=== PATIENT | female | born 1980 | race Asian ===

== ENCOUNTER → 2024-10-24 | Day surgery (SDC) | payer OTHER ==
[~2024-10-24] MED LIST: CALCIUM CARBON500 MG PO; FENTANYL CITRATE/PF 100MCG/2 ML INJ ONE; GLYCOPYRROLATE INJ 0.2 MG/ML VIAL ONE; INDERAL10 MG PO; LIDOCAINE HCL 2% LOCAL INJ 5 ML SDV VIAL INJ ONE; METOCLOPRAMIDE HCL 10 MG/2ML VIAL ONE; PROPOFOL IV EMULSION 10 MG/ML 20 ML VIAL ONE; PROPOFOL IV EMULSION 50 ML IV ONE; ZOLOFT50 MG PO
[2024-10-24] MEDS: LACTATED RINGER'S 1,000 ML ONE (09:56)
[2024-10-24 12:15] VITALS: BP 109/70; PULSE 78; RESP 16; TEMP 97.1; O2SAT 98
== END | disposition home or self-care (01) ==
LOC: OR 08:54
PROVIDERS: ATTEND Internal Medicine Gastroenterology
DX: Z09 Encounter for follow-up examination after completed treatment for conditions other than malignant neoplasm (principal); Z86.0100 Personal history of colon polyps, unspecified; K64.8 Other hemorrhoids; Z71.3 Dietary counseling and surveillance; F32.A Depression, unspecified; Z79.899 Other long term (current) drug therapy; Z68.25 Body mass index [BMI] 25.0-25.9, adult
CPT/HCPCS: 45378; 81025; J2003; J2704 ×2; J2765; J3010; J7121